=== PATIENT | female | born 1950 | race Caucasian/White ===

== ENCOUNTER → 2017-07-29 11:38 | Outpatient (CLI) | payer MEDICARE, OTHER ==
--- NOTE | ~2017-07-29 | EC ---
PATIENT:RICCO ESCOBEDO DATE OF SERVICE: 07/29/17 SEX: F MEDICAL RECORD: [id number] DATE OF : 52 [facility] AGE OF PATIENT: 67 ADMISSION DATE: 07/29/17 REFERRING PHYSICIAN: INTERPRETING PHYSICIAN: DAVID LOYA MD ECHOCARDIOGRAM REPORT ECHO CHARGES 4 ECHO COMPLETE CLINICAL DIAGNOSIS: CHEST PAIN ECHOCARDIOGRAPHIC MEASUREMENTS (adult normal given) AC root (d.<3.7cm) cm LV Septum d (<1.2 cm> 1.4 cm Valve Excursion cm LV Septum (systole) 1.6 cm Left Atria (s.<4.0cm> 4.0 cm LVPW d(<1.2cm) 1.7 cm RV (d.<2.3cm) 3.0 cm LVPW (sytole) 1.9 cm LV diastole(<5.6CM) 4.4 cm MV E-F(>70mm/sec) cm LV systole 2.5 cm LVOT Diameter 2.0 cm MV exc.(>10mm) 1.0 cm Est.ejection fraction (50-75%) % Pericardial Effusion N DOPPLER: LVIT cm/sec A 91.0 cm/sec E 77.0 cm/sec LA cm/sec RVSP 40 mmHg LVOT 96 cm/sec AOP1/2T m/s Asc. Ao 124 cm/sec RVOT 92 cm/sec RA cm/sec PA 145 cm/sec AV Gradient Peak 6.16 mmHg AV Mean 2.66 mmHg AV Area 2.5 cm MV Gradient Peak 4.23 mmHg MV Mean 1.43 mmHg MV Area cm COMMENTS: Barrel Washer Machine: Marce SWAN Dean Of Students: Annika Loya TAPE# PACS DATE OF SERVICE: 07/29/2017 Echocardiogram FINDINGS: 1. Left ventricular chamber size is within normal limits. Left ventricular systolic function is normal. Overall ejection fraction estimated at 60%. 2. Left atrium is upper limits of normal at 4.0 cm. Right atrium and right ventricular chamber sizes are mildly dilated. 3. Valvular structures have normal structure and motion. ECHOCARDIOGRAM REPORT [id number] RICCO ESCOBEDO 4. Doppler interrogation reveals [id number]-[id number] tricuspid regurgitation only. Pulmonary systolic pressure is estimated at 40 mmHg. 5. No evidence of pericardial effusion or left ventricular thrombus. TRANSINT:[id number] Voice Confirmation ID: [id number] DOCUMENT ID: [id number] DAVID LOYA MD at 1025 CC: [id number] DICTATION DATE: 07/29/17 1357 SLIDE DEVELOPER: 07/29/17 1445 DEP CLI 07/29/17 [place] [id number]
== END | disposition home or self-care (01) ==
LOC: D.ECHO 07-27 13:00
DX: R07.9 Chest pain, unspecified (principal)

== ENCOUNTER 2018-05-30 07:29 | Outpatient (CLI) | payer MEDICARE, OTHER ==
[~2018-05-30] VITALS: Ht 170.2 cm; Wt 82.3 kg
--- NOTE | ~2018-05-30 | OP ---
PATIENT NAME: RICCO ESCOBEDO MEDICAL RECORD: [id number] :52 LOCATION:D.CAT ADMISSION DATE: SURGEON: DAVID WASHINGTON MD DATE OF OPERATION: 05/30/2018 DATE OF SERVICE: 05/30/2018 PROCEDURES: 1. PTCA stent of left circumflex. 2. PTCA stent of LAD. 3. Left heart catheterization. 4. Selective coronary angiography. 5. Left ventriculogram. INDICATION: Angina and coronary artery disease. DESCRIPTION OF PROCEDURE: After informed consent was obtained and after detailed description of risks, benefits as well as alternative therapies, the patient elected to proceed with angiogram and angioplasty. The right radial area was prepped, draped in normal sterile fashion. Right radial artery was cannulated via modified Seldinger technique with placement of 6-Welsh sheath. All catheters exchanged through this sheath. FINDINGS: The left ventriculogram was performed in standard 30-degree BUSH view, reveals good cardiac wall motion throughout all segments. Overall ejection fraction estimated at 60%. SELECTIVE CORONARY ANGIOGRAPHY: 1. Left main has no significant angiographic disease. 2. Left anterior descending has a relatively large diagonal that has 90% stenosis in the proximal portion of the diagonal elsewise the LAD and its branches are devoid of disease. 3. The left circumflex has 80-85% stenosis of the first obtuse marginal, otherwise no significant disease. 4. Right coronary has mild irregularities, but no flow-limiting stenosis. PTCA STENT OF THE LAD AND CIRCUMFLEX: The LAD diagonal was addressed with a 2.0 x 8 mm Tip, the circumflex with a 2.0 x 12 mm Reardan. Result was 0% residual stenosis. OVERALL IMPRESSION: Successful percutaneous transluminal coronary angioplasty stent of the left anterior descending diagonal and circumflex, both going from 85-90% initial stenosis to 0% residual. TRANSINT:[id number] Voice Confirmation ID: [id number] DOCUMENT ID: [id number] DAVID WASHINGTON MD at 1925 CC: [id number] DICTATION DATE: 05/30/18 0955 CEMETERY MANAGER: 05/30/18 1028 DEP CLI 05/30/18 [place] [id number] [place] [address]
--- NOTE | ~2018-05-30 | HEMODYNAMI ---
PATIENT:RICCO ESCOBEDO MEDICAL RECORD: [id number] : 52 LOCATION:[facility] ADMISSION DATE: 05/30/18 Generatedon:05/30/20189:53 Patient name: RICCO ESCOBEDO Patient #: [id number] SSN: : 1950 Date of study: 05/30/2018 Page: Of Hemodynamic Procedure Report Patient Data Patient Demographics Procedure consent was obtained First Name: RICCO Gender: Female Last Name: FANNY : 1950 Patient #: [id number] Age: 68 year(s) Race: Unknown Additional ID: [id number] Contact details [address]: [address] [place] [address] ROAD [place] [facility] Zip code: [address] Past Medical History Allergies: No known allergies Admission Admission Data Admission Date: 05/30/2018 Admission Time: 7:29 Procedure Procedure Types Cath Procedure Diagnostic Procedure LHC LHC w/Coronaries Sedation Charges Moderate Sedation up to 15 minutes PCI Procedure Coronary Stent Coronary Stent Initial x2 Procedure Description Procedure Date Procedure Date: 05/30/2018 Procedure Start Time: 9:36 Procedure End Time: 9:52 Procedure Staff Name Function Mario Loya MD Performing Physician Kym De Dios RT Monitor Corey Elias RN Nurse Bessie Luu RT Scrub Rudy Funk RN X Ray Physician Procedure Data Cath Procedure Fluoroscopy Diagnostic fluoroscopy Total fluoroscopy Time: 4.3 time: 4.3 min min Diagnostic fluoroscopy Total fluoroscopy dose: 839 dose: 839 mGy mGy Contrast Material Contrast Material Type Amount (ml) Isovue 300 102 Entry Location Entry Primary Successful Side Size Upsize Upsize Entry Closure Jacobsen ccessful Closure Location (Fr) 1 (Fr) 2 (Fr) Remarks Device Remarks Radial Right 6 Fr Mechanical artery Short Compression Estimated blood loss: 10 ml Diagnostic catheters Device Type Used For End Catheter Placement DIAGNOSTIC [place] 110cm 5 LV Angiography Fr catheter ([id number]) DIAGNOSTIC [place] 110cm 5 Left Coronary Fr catheter ([id number]) Angiography DIAGNOSTIC [place] 110cm 5 Right Coronary Fr catheter ([id number]) Angiography Procedure Complications No complications Procedure Medications Medication Administration Route Dosage 0.9% NaCl I.V. 100 ml/hr Oxygen etCO2 Nasal cannula 2 l/min Heparin Flush Bag added to field 2 bags (1000units/500ml NS) Lidocaine 2% added to field 20 Radial Cocktail added to field 1 syringe (Verapomil 2mg/Nitro 400mcg/Heparin 1500units) Versed I.V. 2 mg Fentanyl I.V. 100 mcg Radial Cocktail I.A. 1 syringe (Verapomil 2mg/Nitro 400mcg/Heparin 1500units) Heparin Bolus I.V. 4000 units Integrilin (Bolus I.V. 7.3 ml 2mg/ml) Integrilin (Bolus wasted 2.7 ml 2mg/ml) Hemodynamics Rest Heart Rate: 69 (bpm) Snapshots Pre Cath Intra NCS Post Cath Vital Signs Time Heart Resp SPO2 etCO2 NIBP Rhythm Pain Sedation Rate (ipm) (%) (mmHg) (mmHg) Status Level (bpm) 9:18:59 64 11 99 31.1 122/85(97) NSR 0 (11) 10(A) , No pain 9:23:08 64 13 99 34.9 109/71(88) NSR 0 (11) 10(A) , No pain 9:28:09 62 14 98 37.9 135/64(88) NSR 0 (11) 10(A) , No pain 9:32:25 66 18 99 12.1 107/69(81) NSR 0 (11) 10(A) , No pain 9:36:29 61 14 93 37.1 108/74(89) NSR 0 (11) 9(A) , No pain 9:40:37 86 11 98 36.4 106/64(81) NSR 0 (11) 9(A) , No pain 9:44:41 82 12 98 37.1 124/70(91) NSR 0 (11) 9(A) , No pain 9:48:51 88 13 100 38 117/75(90) NSR 0 (11) 10(A) , No pain Medications Time Medication Route Dose Verified Delivered Reason Note s Effectiveness by by 9:19:15 0.9% NaCl I.V. 100 Corey Corey Per physician ml/hr Lorbrett Hernandezigan RN RN 9:19:25 Oxygen etCO2 2 l/min Corey Corey Per physician Nasal Curt Elias cannula RN RN 9:19:38 Heparin Flush added 2 bags Corey Corey used for Bag to Curt Elias procedure (1000units/500ml field RN RN NS) 9:19:49 Lidocaine 2% added 20ml Corey Corey for local to vial Lorigan Curt anesthetic field RN RN 9:20:03 Radial Cocktail added 1 Corey Corey used for (Verapomil to syringe Curt Elias procedure 2mg/Nitro field RN RN 400mcg/Heparin 1500units) 9:32:33 Versed I.V. 2 mg Corey Corey for sedation Curt Elias RN RN 9:32:41 Fentanyl I.V. 100 mcg Corey Corey for sedation Curt Elias RN RN 9:38:52 Radial Cocktail I.A. 1 Corey Mario for (Verapomil syringe Curt Taueva MD vasodilation 2mg/Nitro RN 400mcg/Heparin 1500units) 9:45:10 Heparin Bolus I.V. 4000 Corey Corey for units Curt Elias anticoagulation RN RN 9:45:26 Integrilin I.V. 7.3 ml Corey Corey for (Bolus 2mg/ml) Curt Elias antiplatelet RN RN therapy 9:45:37 Integrilin wasted 2.7ml Corey Corey to sharp's (Bolus 2mg/ml) Curt Elias RN spinner cap frame Log Time Note 9:05:05 Time tracking: Regular hours (M-F 7:00 - 5:00) 9:05:10 Plan of Care:Hemodynamics will remain stable., Cardiac rhythm will remain stable., Comfort level will be maintained., Respiratory function will remain adequate., Patient/ family verbilizes understanding of procedure., Procedure tolerated without complication., Recovers from procedure without complications.. 9:08:07 Rudy Funk RN sent for patient. Start room use. 9:10:36 Patient received from Pre/Post Procedure Room to CCL 2 Alert and oriented. Tansferred to table in Supine position. 9:10:37 Warm blankets applied, and drake hugger turned on for patient comfort. 9:10:38 Correct patient and procedure confirmed by team. 9:10:39 Signed procedure consent form obtained from patient. 9:10:40 ECG and BP/O2 sat monitors applied to patient. 9:10:41 Full Disclosure recording started 9:14:27 Pre-procedure instructions explained to patient. 9:14:28 Pre-op teaching completed and patient verbalized understanding. 9:14:29 Family in waiting room. 9:14:30 Patient NPO since Midnight. 9:14:50 Patient allergic to No known allergies 9:14:52 Is the patient allergic to Iodine/contrast media? No. 9:14:53 Is patient on blood thinner?No 9:15:15 Patient diabetic? No. 9:15:19 Previous problem with sedation/anesthesia? No ? 9:15:23 Snore? Yes 9:15:24 Sleep apnea? Yes 9:15:25 Deviated septum? No 9:15:26 Opens mouth fully? Yes 9:15:26 Sticks out tongue? Yes 9:15:28 Airway obstruction? No ? 9:15:29 Dentures? No ? 9:15:32 Modified Chidi's test Ulnar < 7 seconds 9:15:34 Patient pain scale 0/10 ?. 9:15:42 IV patent on arrival in left hand with 0.9% NaCl at O. 9:17:31 Lab results completed and on chart. 9:17:34 Right Radial & Right Groin area was prepped with chlora-prep and draped in sterile fashion 9:17:35 Alarms reviewed by R. N. 9:17:35 Sharps counted by scrub and verified by R.N. 9:17:39 Use device set Radial Dx or PCI 9:17:40 ACIST Syringe (28080) opened to sterile field. 9:17:40 Medline Cath Pack ([id number]) opened to sterile field. 9:17:41 Bag Decanter () opened to sterile field. 9:17:42 ACIST Hand Control (23109) opened to sterile field. 9:17:42 ACIST Manifold (19579) opened to sterile field. 9:17:43 Tegaderm 4 x 4 (1626W) opened to sterile field. 9:17:43 MBrace Wrist Support ([id number]) opened to sterile field. 9:17:44 SHEATH 6FR Slender ([id number]) opened to sterile field. 9:17:45 DIAGNOSTIC WIRE .035 260cm J wire (707781) opened to sterile field. 9:17:51 Vital chart was started 9:17:52 Baseline sample Acquired. 9:17:57 Rhythm: sinus rhythm 9:18:04 H&P Date Dictated: 05/24/2018 Within 30 days and on chart., H&P Addendum completed by physician on day of procedure. (MUST COMPLETE FOR ALL OUTPATIENTS). 9:19:15 0.9% NaCl 100 ml/hr I.V. was administered by Corey Elias RN; Per physician; 9:19:25 Oxygen 2 l/min etCO2 Nasal cannula was administered by Corey Elias RN; Per physician; 9:19:38 Heparin Flush Bag (1000units/500ml NS) 2 bags added to field was administered by Corey Elias RN; used for procedure; 9:19:46 Baseline sample Acquired. 9:19:49 Lidocaine 2% 20ml vial added to field was administered by Corey Elias RN; for local anesthetic; 9:20:03 Radial Cocktail (Verapomil 2mg/Nitro 400mcg/Heparin 1500units) 1 syringe added to field was administered by Corey Elias RN; used for procedure; 9:29:26 Zero performed for pressure channel P1 9:31:40 Final Timeout: patient, procedure, and site verified with staff and physician. All members of the team are in agreement. 9:31:42 Right Radial site verified by team. 9:31:45 Physical assessment completed. ASA score P 2 - A patient with mild systemic disease as per Mario Loya MD. 9:31:47 Sedation plan: IV Moderate Sedation Medication:Versed, Fentanyl 9:32:33 Versed 2 mg I.V. was administered by Corey Elias RN; for sedation; 9:32:41 Fentanyl 100 mcg I.V. was administered by Corey Elias RN; for sedation; 9:36:42 Procedure started. 9:36:49 Local anesthetic to right radial artery with Lidocaine 2% by Mario Loya MD.INITIAL ACCESS ONLY 9:37:22 A 6 Fr Short sheath was inserted into the Right Radial artery 9:38:48 A DIAGNOSTIC [place] 110cm 5 Fr catheter (802343) was advanced over the wire and used for LV Angiography. 9:38:52 Radial Cocktail (Verapomil 2mg/Nitro 400mcg/Heparin 1500units) 1 syringe I.A. was administered by Mario Loya MD; for vasodilation; 9:39:24 LV gram done using BUSH 9:39:26 Injector settings: Ml/sec: 5, Volume: 15, 9:39:34 EF : 60 % 9:39:43 A DIAGNOSTIC [place] 110cm 5 Fr catheter (065439) was advanced over the wire and used for Left Coronary Angiography. 9:40:46 A DIAGNOSTIC [place] 110cm 5 Fr catheter (858908) was advanced over the wire and used for Right Coronary Angiography. 9:40:53 Use device set [facility] PCI 9:41:01 INFLATOR Merit BasixCompak (OY1336) opened to sterile field. 9:41:05 CHOICE PT Extra Support 182cm wire ([id number]) opened to sterile field. 9:41:08 Catheter removed. 9:41:10 GUIDE 6FR XBLAD 3.5 catheter (07126046) opened to sterile field. 9:42:23 6 Fr XBLAD 3.5 guide catheter was inserted over the wire 9:43:15 CHOICE PT ES wire advanced. 9:45:10 Heparin Bolus 4000 units I.V. was administered by Corey Elias RN; for anticoagulation; 9:45:26 Integrilin (Bolus 2mg/ml) 7.3 ml I.V. was administered by Corey Elias RN; for antiplatelet therapy; 9:45:37 Integrilin (Bolus 2mg/ml) 2.7ml wasted was administered by Corey Elias RN; to sharp's; 9:45:53 Place stent Inflation Number: 1 A CORTEZ RX 2.0 x 12 stent ([id number]) was prepped and advanced across the 1st Ob Vero. The stent was deployed at 11 REJI for 0:10 (min:sec). 9:46:18 Stent catheter was removed intact over wire. 9:46:26 Wire redirected to LAD/DIAG. 9:47:57 Place stent Inflation Number: 1 A CORTEZ RX 2.0 x 8 stent ([id number]) was prepped and advanced across the 1st Diag. The stent was deployed at 11 REJI for 0:04 (min:sec). 9:48:07 Stent catheter was removed intact over wire. 9:48:07 Wire removed. 9:48:07 Guide catheter removed. 9:48:21 Sheath removed intact; hemostasis achieved with Mechanical Compression to the Right Radial artery. 9:48:23 Procedure ended.(Physican Out) 9:49:36 TR BAND Standard ([id number]) opened to sterile field. 9:49:41 Fluoroscopy time 04.30 minutes. 9:49:46 Fluoroscopy dose: 839 mGy 9:49:46 Flurop Dose total: 839 9:49:49 Contrast amount:Isovue 300 102ml. 9:49:50 Sharps counted by scrub and verified by R.N. 9:49:52 TR band inflated with 12cc of air. 9:49:53 Insertion/operative site no bleeding no hematoma. 9:49:59 Post right radial artery:stable, clean and dry 9:50:01 Post Procedure Pulses reassessed and unchanged 9:50:03 Post-procedure physical assessment completed. ASA score P 2 - A patient with mild systemic disease as per Mario Loya MD. 9:50:05 Post procedure rhythm: unchanged. 9:50:10 Estimated blood loss: 10 ml 9:50:11 Post procedure instruction explained to patient.Patient verbalizes understanding. 9:50:11 Patient needs reinforcement of post procedure teaching. 9:50:39 Procedure type changed to Cath procedure, Diagnostic procedure, LHC, LHC w/Coronaries, Sedation Charges, Moderate Sedation up to 15 minutes, PCI procedure, Coronary Stent, Coronary Stent Initial x2 9:50:55 Procedure Complication : No complications 9:50:57 See physician's report for complete and final results. 9:52:06 Procedure and supply charges have been captured, reviewed, submitted and are correct. 9:52:09 Vital chart was stopped 9:52:10 Report given to Pre/Post Procedure Room. 9:52:13 Patient transfered to Pre/Post Procedure Room with Stretcher. 9:52:25 Procedure ended. 9:52:25 Full Disclosure recording stopped 9:53:34 End room use (Document Last) Intervention Summary Intervention Notes Time ActionType Lesion and Equipment Used Action# Pressure Duration Attributes 9:45:53 Place stent 1st Ob Vero CORTEZ RX 2.0 x 1 11 00:10 12 stent ([id number]) 9:47:57 Place stent 1st Diag CORTEZ RX 2.0 x 1 11 00:04 8 stent ([id number]) Device Usage Item Name Manufacture Quantity Catalog Number Hospital Part Current M inimal Lot# / Charge Number Stock Stock Serial# Code ACIST Syringe Acist 1 75754 262851 003332 804888 2 0 (31074) Medical Systems Inc Medline Cath Medline 1 [id number] 297077 32253 816941 5 Pack ([id number]) Bag Decanter Microtek 1 2001S 270505 44251 080675 5 () Medical Inc. ACIST Hand Acist 1 16616 453949 444136 543480 5 Control Medical (82501) Systems Inc ACIST Manifold Acist 1 84055 201862 069582 149735 5 (67419) Medical Systems Inc Tegaderm 4 x 4 3M 1 1626W 756566 468713 466086 5 (1626W) MBrace Wrist Advanced 1 140-0250-00 695886 43470 579637 5 Support Vascular ([id number]) Dynamics SHEATH 6FR Terumo 1 [id number] 239886 660225 705073 4 0 Slender (80-1060) DIAGNOSTIC [facility] 1 561009 966643 840273 245912 3 0 WIRE .035 260cm J wire (538723) DIAGNOSTIC Terumo 1 40-2603 799627 136393 800248 5 [place] 110cm 5 Fr catheter (803086) INFLATOR Merit Merit 1 WI6237 858355 385690 922991 1 5 [facility] (IJ5832[facility] CHOICE PT [place] 1 [id number] 196424 514560 490723 5 Extra Support Scientific 182cm wire ([id number]) GUIDE 6FR Cardinal 1 [id number] 466457 156082 556524 1 0 XBLAD 3.5 Health catheter (18461279) CORTEZ RX 2.0 x Medtronic 1 [id number] 160705 0548743 445947 5 [id number] 12 stent ([id number]) CORTEZ RX 2.0 x Medtronic 1 [id number] 693298 0912021 319137 5 [id number] 8 stent ([id number]) TR BAND Terumo 1 [id number] 847341 749717 685385 4 0 Standard ([id number]) Signature Audit [place] Stage Time Signature Unsigned Intra-Procedure 05/30/2018 Bessie 9:53:45 AM Counts RT(R) Signatures Monitor : Kym De Dios Signature : RT Date : Time : [address] [id number]
[2018-05-30] MEDS ORDERED: ASPIRIN81 MG PO (08:15)
[2018-05-30] MEDS ORDERED: VOLTAREN75 MG PO (08:16)
[2018-05-30] MEDS ORDERED: ZANAFLEX4 MG PO (08:17)
[2018-05-30 08:27] LABS: BASOPHILS 0.2 % (0-2); EOSINOPHILS 2.5 % (0-7); HEMATOCRIT 46.3 % (36.0-48.0); HEMOGLOBIN 15.5 g/dL (12-16); IMMATURE GRANULOCYTES 0.2 % (0-5); LYMPHOCYTES 27.2 % (15-50); MCH 29.7 pg (26.0-34.0); MCHC 33.5 g/dL (31.0-37.0); MCV 88.7 fL (80.0-100.0); MEAN PLATELET VOLUME 11.4 fL (7.4-10.4); MONOCYTES 9.5 % (2-11); NEUTROPHILS 60.4 % (40-80); PLATELET COUNT 194 10x3/uL (130-400); RBC 5.22 10x6/uL (4.00-5.40); RDW 14.3 % (11.5-14.5); WBC 4.8 10x3/uL (4.8-10.8)
[2018-05-30 08:29] VITALS: BP 139/81; Ht 170.2 cm; Wt 82.3 kg
[2018-05-30 08:31] LABS: ANION GAP 12.7 mmol/L (8-16); CARBON DIOXIDE 26.8 mmol/L (21.0-32.0); CREATININE - SERUM 0.9 mg/dL (0.6-1.3); POTASSIUM - SERUM 3.5 mmol/L (3.5-5.1)
[2018-05-30] MEDS ORDERED: BAYER CHEWABLE81 MG PO (10:08)
[2018-05-30] MEDS ORDERED: PLAVIX75 MG PO (10:08)
== END 2018-05-30 14:00 | disposition home or self-care (01) ==
LOC: D.CATH 07:29
PROVIDERS: Internal Medicine Interventional Cardiology
DX: I25.119 Atherosclerotic heart disease of native coronary artery with unspecified angina pectoris (principal)
CPT/HCPCS: 93458; C9600 ×2

== ENCOUNTER → 2018-06-13 17:34 | Outpatient (CLI) | payer MEDICARE, OTHER ==
[2018-05-30 08:29] VITALS: BMI 28.4
[~2018-06-13 17:34] MED LIST: ASPIRIN81 MG PO; BAYER CHEWABLE81 MG PO; PLAVIX75 MG PO; VOLTAREN75 MG PO; ZANAFLEX4 MG PO
== END | disposition home or self-care (01) ==
LOC: D.MAMMO 11:15
DX: Z12.31 Encounter for screening mammogram for malignant neoplasm of breast (principal)